=== PATIENT | male | born 1950 | race Caucasian/White ===

== ENCOUNTER 2019-05-20 09:41 | Outpatient (CLI) | payer MEDICARE ==
--- NOTE | 2019-05-20 15:18 | Ultrasound Report ---
Reason: SCREENING FOR AAA Procedure Date: 05/20/2019 Accession Number: [id number] / [id number] Procedure: US - Aorta Screening CPT Code: Final Report FULL RESULT: EXAM: AORTIC DOPPLER ULTRASOUND EXAM DATE: 05/20/2019 10:15 AM. CLINICAL HISTORY: SCREENING FOR AAA. COMPARISON: None. TECHNIQUE: Real-time sonographic imaging of retroperitoneal vascular structures, including color-flow, Doppler flow and spectral analysis was performed by the abstract manager. Multiple fulfillment representative static images were saved for review. FINDINGS: Aorta: The abdominal aorta was adequately visualized. No evidence for abdominal aortic aneurysm. Proximal: Obscured by overlying bowel gas. Mid: 2.1 x 2.2 cm. Distal: 2.0 x 2.07 m. Iliac Vessels: The visualized proximal common iliac arteries are normal in caliber. Other: None. IMPRESSION: Proximal aorta is obscured by overlying bowel gas. Otherwise, no abdominal aortic aneurysm. [facility]
== END 2019-05-20 09:42 | disposition home or self-care (01) ==
LOC: DI 09:41
PROVIDERS: ATTEND Registered Nurse
DX: Z13.6 Encounter for screening for cardiovascular disorders (principal); R07.81 Pleurodynia; Z82.49 Family history of ischemic heart disease and other diseases of the circulatory system
CPT/HCPCS: 76706

== ENCOUNTER 2019-05-20 10:00 | Outpatient (CLI) | payer MEDICARE ==
--- NOTE | 2019-05-20 16:34 | XRAY Report ---
Reason: PLEURODYNIA Procedure Date: 05/20/2019 Accession Number: [id number] / [id number] Procedure: XR - Ribs w/PA Chest RT CPT Code: Final Report FULL RESULT: EXAM: RIGHT RIB RADIOGRAPHY EXAM DATE: 05/20/2019 10:35 AM. CLINICAL HISTORY: PLEURODYNIA. COMPARISON: None. TECHNIQUE: 1 view of the chest and 2 views of the ribs. FINDINGS: Bones: Normal. No fracture or bone lesion. Lungs: No focal opacities. No pneumothorax. No pleural effusions. Mediastinum: Heart and mediastinal contours are unremarkable. Other: None. IMPRESSION: Negative rib radiography. [facility]
== END 2019-05-20 10:01 | disposition home or self-care (01) ==
LOC: DI 10:00
PROVIDERS: ATTEND Nurse Practitioner Family
DX: R07.81 Pleurodynia (principal)

== ENCOUNTER 2019-06-01 08:53 | Outpatient (CLI) | payer MEDICARE, OTHER ==
--- NOTE | 2019-06-01 12:25 | CARDIAC PROCEDURE NOTE ---
DATE OF SERVICE: 06/01/2019 Physician: Ginny Concepcion MD, [facility] INDICATION: Atherosclerotic heart disease. CARDIAC RISK FACTORS: Male gender, elevated cholesterol, hypertension, family history of heart disease. DESCRIPTION OF PROCEDURE: After signing informed consent, the patient underwent a Jamie-protocol treadmill stress test with nuclear myocardial perfusion imaging. RESTING HEART RATE: 64. PEAK HEART RATE: 140 (91% predicted maximum heart rate for age). RESTING BLOOD PRESSURE: 125/87. PEAK BLOOD PRESSURE: 209/80. The patient exercised for 9 minutes 30 seconds on a Jamie-protocol treadmill stress test with the additional 30 seconds at a continued stage III. The patient achieved a peak heart rate of 140 (91% PMHR) and 10.2 METS. The patient had no chest pain. The patient had moderate shortness of breath and oxygen saturation decreased slightly from 98% to 94% on room air. The patient rated his perceived exertion at 15/20 on a Shira scale. Blood pressure response was excessive. RESTING EKG: Normal sinus rhythm, left atrial enlargement, otherwise within normal limits. EKG AT PEAK: Even more prominent left atrial enlargement and upsloping ST segment depressions in leads II, III, aVF, and V3-V6. SUMMARY 1. Borderline abnormal resting EKG. 2. Nonspecific changes occur by EKG criteria for ischemia. 3. Good exercise tolerance. 4. Nuclear images reported separately. 5. This patient's cardiac risk based on all the above: Moderate. cc: TALIA Lacey TD: 06/01/2019 12:12 MTDD
--- NOTE | 2019-06-02 16:30 | Nuclear Medicine Report ---
Reason: CORONARY ARTERIOSCLEROSIS Procedure Date: 06/01/2019 Accession Number: [id number] / [id number] Procedure: NM - Myocardial Perfusion STR/RST CPT Code: Final Report FULL RESULT: EXAM: SINGLE-ISOTOPE PHARMACOLOGICAL STRESS TEST WITH REGADENOSON. SINGLE-ISOTOPE AND ONE-DAY REST/STRESS MYOCARDIAL PERFUSION SCANS WITH TOMOGRAPHIC IMAGING, QUANTITATIVE ANALYSIS, WALL MOTION ANALYSIS AND CALCULATION OF EJECTION FRACTION. EXAM DATE: 06/01/2019 04:13 PM. CLINICAL HISTORY: Coronary arteriosclerosis. COMPARISON: None available. TECHNIQUE: After the intravenous administration of 10.9 mCi of Tc-99m sestamibi, a rest myocardial perfusion scan was done with tomography. Motion correction was applied when appropriate. After an appropriate delay, pharmacological stress was performed with the infusion of 0.4 mg regadenoson per protocol. According to protocol, 43.5 mCi of Tc-99m sestamibi was injected for stress myocardial perfusion scan. Motion correction was applied when appropriate. Gated tomographic images were obtained for wall motion analysis and computation of left ventricular ejection fraction. FINDINGS: On visual analysis, no convincing significant fixed or reversible perfusion defects are evident. Computer analysis indicates a moderate severity reversible anterior wall defect with a summed stress score 11 and summed difference score 8. Wall motion analysis demonstrates no focal wall motion abnormality. The left ventricular end-diastolic volume is 66 cc. The left ventricular end-systolic volume is 16 cc. The left ventricular ejection fraction is calculated to be 75%. IMPRESSION: 1. The computer indicates moderate anterior wall ischemia, but this is not appreciated on visual analysis. 2. Left ventricular ejection fraction of 75%. 3. Normal segmental and global wall motion. 4. Normal left ventricular cavity size, no change with stress. Please correlate findings with stress ECG tracings and procedure notes. [facility]
== END 2019-06-01 08:54 | disposition home or self-care (01) ==
LOC: DI 08:53
PROVIDERS: ATTEND Registered Nurse
DX: I25.10 Atherosclerotic heart disease of native coronary artery without angina pectoris (principal); R94.31 Abnormal electrocardiogram [ECG] [EKG]; E78.00 Pure hypercholesterolemia, unspecified; I10 Essential (primary) hypertension; Z82.49 Family history of ischemic heart disease and other diseases of the circulatory system
CPT/HCPCS: 78452; 93017; A9500

== ENCOUNTER 2020-09-07 08:00 | Outpatient (CLI) | payer MEDICARE ==
[2020-09-07 14:54] LABS: BILIRUBIN,URINE NEGATIVE (NEGATIVE); GLUCOSE, URINE (UA) NEGATIVE (NEGATIVE); KETONES,URINE (UA) TRACE mg/dL (NEGATIVE); LEUKOCYTE ESTERASE, URINE MODERATE (NEGATIVE); NITRITE,URINE POSITIVE (NEGATIVE); OCCULT BLOOD,URINE LARGE (NEGATIVE); PH,URINE 6.5 PH (5.0-7.5); PROTEIN,URINE >=300 mg/dL (NEGATIVE); UROBILINOGEN,URINE 1 (NORMAL) E.U./dL (NORMAL)
[2020-09-07 14:58] LABS: CLARITY,URINE CLOUDY (CLEAR)
[2020-09-07 15:08] LABS: BACTERIA,URINE Moderate /HPF (None Seen); RBC,URINE TNTC /HPF (0-5); SQUAMOUS EPITHELIAL CELL,UR FEW Squamous (<= Few); WBC,URINE >25 /HPF (0-3)
== END 2020-09-07 23:59 | disposition home or self-care (01) ==
LOC: LAB.S 08:00
PROVIDERS: ATTEND Emergency Medicine
DX: R36.9 Urethral discharge, unspecified (principal); N41.0 Acute prostatitis
CPT/HCPCS: 81001; 87070; 87086; 87181; 87205

== ENCOUNTER 2020-09-10 17:30 | Emergency (ER) | payer MEDICARE ==
--- OUTSIDE RECORDS SUMMARY | 2020-09-10 17:33 | EXTERNAL MEDICAL SUMMARY RPT | Continuity of Care Document ---
:1950 Demographics Phone Unavailable Preferred Language Unknown Marital Status Unknown Yarsani Affiliation Unknown Race Unknown Ethnic Group Unknown Author Organization [facility] Address [address] [phone] Phone Care Team Providers Name Role Phone MD Unavailable Unavailable Alicja Unavailable Unavailable Allergies Encounters Medications date description facility [id number] [facility] [id number] TAMSULOSIN HCL [facility] [id number] ROSUVASTATIN CALCIUM [facility] [id number] CIPROFLOXACIN HCL [facility] [phone] ASPIRIN [facility] [id number] ROSUVASTATIN CALCIUM [facility] [id number] TAMSULOSIN HCL [facility] [id number] CIPROFLOXACIN HCL [facility] [id number] [facility] [id number] [facility] [id number] T[facility]ULOSIN [facility]CL [facility] [id number] ROSUVASTATIN CALCIUM [facility] [id number] CIPROFLOXACIN HCL [facility] [id number] ASPIRIN [facility] [id number] ROSUVASTATIN CALCIUM [facility] [id number] TAMSULOSIN HCL [facility] [id number] CIPROFLOXACIN HCL [facility] [id number] [facility] Problems date description facility [id number] Tobacco smoking status NHIS [facility] [id number] Never smoker [facility] [id number] Details of drug misuse behavior [facility] [id number] Constipation, unspecified [facility] [id number] Constipation [facility] [id number] Alcohol use [facility] [id number] Alcohol intake [facility] [id number] Tobacco smoking status NHIS [facility] [id number] Never smoker [facility] [id number] Details of drug misuse behavior [facility] [id number] Benign prostatic hyperplasia with [facility] Primary Care & outflow obstruction [facility] [id number] Urinalysis with Microscopic Exam, [facility] Primary Care & Culture in Indicated [facility] [id number] Urethral discharge, unspecified [facility] [id number] Hypertrophy (benign) of prostate with W [facility] Primary Care & urinary obstruction and other lower Anci llary Services [facility] urinary tract symptoms (LUTS) [id number] Discharge from penis [facility] [id number] CULT WOUND AEROBIC [facility] [id number] Benign prostatic hyperplasia with [facility] Primary Care & lower urinary tract symptoms Ancillary S ervices [facility] [id number] Alcohol use [facility] [id number] Alcohol intake [facility] r[facility] [id number] Acute prostatitis [facility] [place] [facility] Enoc rubio Results test status date ordered by attending specimen abisai e WBC_urine_on_microscop unknown [id number] unknown unknown unknown y Urobilinogen_Presence_ unknown 12726018 unknown unknown unknown in_Urine_by_Test_strip Specific_gravity_of_Ur unknown 99783080 unknown unknown unknown ine_by_Test_strip Nitrite_Presence_in_Ur unknown 95933632 unknown unknown unknown ine_by_Test_strip Leukocyte_esterase_Pre unknown 66313071 unknown unknown unknown sence_in_Urine_by_Test_ strip Ketones_Mass_volume_in unknown 57414626 unknown unknown unknown _Urine_by_Test_strip Color_of_Urine unknown 65611492 unknown unknown unknown Bilirubin.total_Presen unknown 49978273 unknown unknown unknown ce_in_Urine_by_Test_str ip clarity_urine_point unknown 91655219 unknown unknown unk nown pH_study_of_acidity unknown 95828873 unknown unknown unk nown glucose_urine unknown 08607800 unknown unknown unknown leukocyte_esterase_uri unknown 61599127 unknown unknown unknown ne_by_dipstick urobilinogen_urine_sem unknown 92437090 unknown unknown unknown iquantitative_dipstick_ specific_gravity_urine unknown 08425490 unknown unknown unknown nitrite_urine_semiquan unknown 04271699 unknown unknown unknown titative ketones_urine_by_test_ unknown 90461155 unknown unknown unknown strip bilirubin_urine unknown 77581417 unknown unknown unknown urine_color unknown 34670744 unknown unknown unknown Glucose_Mass_volume_in unknown 52572080 unknown unknown unknown _Urine WBC_urine_on_microscop unknown 89338739 unknown unknown unknown y WBC_URINE unknown 41093872 unknown unknown unknown UROBILINOGEN_URINE unknown 88641298 unknown unknown unkn own SPECIFIC_GRAVITY_URINE unknown 86765923 unknown unknown unknown T unknown 94454394 unknown unknown unknown T unknown 74460041 unknown unknown unknown T unknown 24668559 unknown unknown unknown T unknown 83446220 unknown unknown unknown T unknown 66156789 unknown unknown unknown T unknown 51088334 unknown unknown unknown T unknown 95607723 unknown unknown unknown T unknown 57639980 unknown unknown unknown T unknown 64132423 unknown unknown unknown T unknown 51211390 unknown unknown unknown T unknown 13244031 unknown unknown unknown PH_URINE unknown 61774770 unknown unknown unknown NITRITE_URINE unknown 02063949 unknown unknown unknown LEUKOCYTE_ESTERASE_URI unknown 76922936 unknown unknown unknown NE KETONES_URINE_UA_ unknown 66163512 unknown unknown unkno wn GLUCOSE_URINE_UA_ unknown 75289150 unknown unknown unkno wn COLOR_URINE unknown 31418743 unknown unknown unknown CLARITY_URINE unknown 58965612 unknown unknown unknown BILIRUBIN_URINE unknown 01974623 unknown unknown unknown WBC_urine_on_microscop unknown 71277929 unknown unknown unknown y Urobilinogen_Presence_ unknown 47554090 unknown unknown unknown in_Urine_by_Test_strip Specific_gravity_of_Ur unknown 07588835 unknown unknown unknown ine_by_Test_strip Nitrite_Presence_in_Ur unknown 99747715 unknown unknown unknown ine_by_Test_strip Leukocyte_esterase_Pre unknown 46276183 unknown unknown unknown sence_in_Urine_by_Test_ strip Ketones_Mass_volume_in unknown 07558907 unknown unknown unknown _Urine_by_Test_strip Color_of_Urine unknown 66991022 unknown unknown unknown Bilirubin.total_Presen unknown 12538854 unknown unknown unknown ce_in_Urine_by_Test_str ip clarity_urine_point unknown 26469711 unknown unknown unk nown pH_study_of_acidity unknown 05519629 unknown unknown unk nown glucose_urine unknown 12955891 unknown unknown unknown leukocyte_esterase_uri unknown 95385853 unknown unknown unknown ne_by_dipstick urobilinogen_urine_sem unknown 65239807 unknown unknown unknown iquantitative_dipstick_ specific_gravity_urine unknown 76974540 unknown unknown unknown nitrite_urine_semiquan unknown 74999827 unknown unknown unknown titative ketones_urine_by_test_ unknown 38556817 unknown unknown unknown strip bilirubin_urine unknown 44688029 unknown unknown unknown urine_color unknown 35702064 unknown unknown unknown Glucose_Mass_volume_in unknown 67522552 unknown unknown unknown _Urine WBC_urine_on_microscop unknown 43290120 unknown unknown unknown y WBC_URINE unknown 89251721 unknown unknown unknown UROBILINOGEN_URINE unknown 02403286 unknown unknown unkn own SPECIFIC_GRAVITY_URINE unknown 15587270 unknown unknown unknown T unknown 33435041 unknown unknown unknown T unknown 65787410 unknown unknown unknown T unknown 33895555 unknown unknown unknown T unknown 61877676 unknown unknown unknown T unknown 63251728 unknown unknown unknown T unknown 34198100 unknown unknown unknown T unknown 45423949 unknown unknown unknown T unknown 63979388 unknown unknown unknown T unknown 66294354 unknown unknown unknown T unknown 37046037 unknown unknown unknown T unknown 92130036 unknown unknown unknown PH_URINE unknown 75882217 unknown unknown unknown NITRITE_URINE unknown 12422813 unknown unknown unknown LEUKOCYTE_ESTERASE_URI unknown 92201062 unknown unknown unknown NE KETONES_URINE_UA_ unknown 89593523 unknown unknown unkno wn GLUCOSE_URINE_UA_ unknown 30555254 unknown unknown unkno wn COLOR_URINE unknown 29718150 unknown unknown unknown CLARITY_URINE unknown 28687981 unknown unknown unknown BILIRUBIN_URINE unknown 96967014 unknown unknown unknown facility observation status value reference units lab code abn ormal line range notes [facility] WBC_urine_on unknown >25 /HPF unknown _5821-4 unk nown unknown Clinic _microscopy [facility] Urobilinogen unknown 1 unknown _5818-0 unkno wn unknown Clinic _Presence_in_ (NORMAL) Primary Urine_by_Test Care & _strip [facility] Specific_gra unknown >=1.030 unknown _5811-5 unkn own unknown Clinic vity_of_Urine Primary _by_Test_stri Care & p [facility] Nitrite_Pres unknown POSITIVE unknown _5802-4 unk nown unknown Clinic ence_in_Urine Primary _by_Test_stri Care & p [facility] Leukocyte_es unknown MODERATE unknown _5799-2 unk nown unknown Clinic terase_Presen Primary ce_in_Urine_b Care & y_Test_strip [facility] Ketones_Mass unknown TRACE unknown _5797-6 unkno wn unknown Clinic _volume_in_Ur Primary ine_by_Test_s Care & trip [facility] Color_of_Uri unknown BROWN unknown _5778-6 unkno wn unknown Clinic ne [facility] Bilirubin.to unknown NEGATIVE unknown _5770-3 unk nown unknown Clinic tal_Presence_ Primary in_Urine_by_T Care & est_strip [facility] clarity_urin unknown CLOUDY unknown _5589 unknow n unknown Clinic e_point [facility] pH_study_of_ unknown 6.5 unknown _51641 unknow n unknown Clinic acidity [facility] glucose_urin unknown NEGATIVE unknown _3369 unkn own unknown Clinic e mg/dL [facility] leukocyte_es unknown MODERATE unknown _327 unkn own unknown Clinic terase_urine_ Primary by_dipstick Care & [facility] urobilinogen unknown 1 unknown _326 unknow n unknown Clinic _urine_semiqu (NORMAL) Primary antitative_di Care & pstick_ [facility] specific_gra unknown >=1.030 unknown _325 unkno wn unknown Clinic vity_urine [facility] nitrite_urin unknown POSITIVE unknown _323 unkn own unknown Clinic e_semiquantit Primary ative [facility] ketones_urin unknown TRACE unknown _322 unknow n unknown Clinic e_by_test_str Primary ip [facility] bilirubin_ur unknown NEGATIVE unknown _319 unkn own unknown Clinic ine [facility] urine_color unknown BROWN unknown _2751 unknown unknown Clinic [facility] Glucose_Mass unknown NEGATIVE unknown _2350-7 unk nown unknown Clinic _volume_in_Ur mg/dL Primary ine [facility] WBC_urine_on unknown >25 /HPF unknown _1016 unkn own unknown Clinic _microscopy [facility] WBC_URINE unknown >25 /HPF unknown UWBC unknown unknown Clinic [facility] UROBILINOGEN unknown 1 unknown UUROBIL unkno wn unknown Clinic _URINE (NORMAL) [facility] SPECIFIC_GRA unknown >=1.030 unknown USG unkno wn unknown Clinic VITY_URINE [facility] T unknown >25 /HPF unknown UR_WBC unknown u [facility] T unknown 1 unknown UR_URO unknown [facility] (NORMAL) [facility] T unknown >=1.030 unknown UR_SG unknown un known Clinic [facility] T unknown 6.5 unknown UR_PH unknown [facility] T unknown POSITIVE unknown [facility] T unknown MODERATE unknown UR_LEU_E unknown unknown Clinic STERASE [facility] T unknown TRACE unknown UR_KETO_ unknown u [facility] UA_ [facility] T unknown NEGATIVE unknown UR_GLU unknown u [facility] mg/dL Primary [facility] T unknown BROWN unknown UR_COLOR unknown u [facility] T unknown CLOUDY unknown UR_CLARI unknown u [facility] TY [facility] T unknown NEGATIVE unknown UR_BILI unknown unknown Clinic [facility] PH_URINE unknown 6.5 unknown UPH unknown u [facility] NITRITE_URIN unknown POSITIVE unknown UNITRITE un known unknown Clinic E [facility] LEUKOCYTE_ES unknown MODERATE unknown ULEUK unkn own unknown Clinic TERASE_URINE [facility] KETONES_URIN unknown TRACE unknown UKET unknow n unknown Clinic E_UA_ [facility] GLUCOSE_URIN unknown NEGATIVE unknown UGLUC unkn own unknown Clinic E_UA_ mg/dL [facility] COLOR_URINE unknown BROWN unknown UCOL unknown unknown Clinic [facility] CLARITY_URIN unknown CLOUDY unknown UCLAR unknow n unknown Clinic E [facility] BILIRUBIN_UR unknown NEGATIVE unknown UBIL unkn own unknown Clinic INE [facility] WBC_urine_on unknown >25 /HPF unknown _5821-4 unk nown unknown Clinic _microscopy [facility] Urobilinogen unknown 1 unknown _5818-0 unkno wn unknown Clinic _Presence_in_ (NORMAL) Primary Urine_by_Test Care & _strip [facility] Specific_gra unknown >=1.030 unknown _5811-5 unkn own unknown Clinic vity_of_Urine Primary _by_Test_stri Care & p [facility] Nitrite_Pres unknown POSITIVE unknown _5802-4 unk nown unknown Clinic ence_in_Urine Primary _by_Test_stri Care & p [facility] Leukocyte_es unknown MODERATE unknown _5799-2 unk nown unknown Clinic terase_Presen Primary ce_in_Urine_b Care & y_Test_strip [facility] Ketones_Mass unknown TRACE unknown _5797-6 unkno wn unknown Clinic _volume_in_Ur Primary ine_by_Test_s Care & trip [facility] Color_of_Uri unknown BROWN unknown _5778-6 unkno wn unknown Clinic ne [facility] Bilirubin.to unknown NEGATIVE unknown _5770-3 unk nown unknown Clinic tal_Presence_ Primary in_Urine_by_T Care & est_strip [facility] clarity_urin unknown CLOUDY unknown _5589 unknow n unknown Clinic e_point [facility] pH_study_of_ unknown 6.5 unknown _51641 unknow n unknown Clinic acidity [facility] glucose_urin unknown NEGATIVE unknown _3369 unkn own unknown Clinic e mg/dL [facility] leukocyte_es unknown MODERATE unknown _327 unkn own unknown Clinic terase_urine_ Primary by_dipstick Care & [facility] urobilinogen unknown 1 unknown _326 unknow n unknown Clinic _urine_semiqu (NORMAL) Primary antitative_di Care & pstick_ [facility] specific_gra unknown >=1.030 unknown _325 unkno wn unknown Clinic vity_urine [facility] nitrite_urin unknown POSITIVE unknown _323 unkn own unknown Clinic e_semiquantit Primary ative [facility] & [facility] ketones_urin unknown TRACE unknown _322 unknow n unknown Clinic e_by_test_str Primary ip [facility] & [facility] bilirubin_ur unknown NEGATIVE unknown _319 unkn own unknown Clinic ine [facility] urine_color unknown BROWN unknown _2751 unknown unknown Clinic [facility] Glucose_Mass unknown NEGATIVE unknown _2350-7 unk nown unknown Clinic _volume_in_Ur mg/dL Primary ine Care & [facility] WBC_urine_on unknown >25 /HPF unknown _1016 unkn own unknown Clinic _microscopy [facility] WBC_URINE unknown >25 /HPF unknown UWBC unknown unknown Clinic [facility] UROBILINOGEN unknown 1 unknown UUROBIL unkno wn unknown Clinic _URINE (NORMAL) [facility] SPECIFIC_GRA unknown >=1.030 unknown USG unkno wn unknown Clinic VITY_URINE [facility] T unknown >25 /HPF unknown UR_WBC unknown u [facility] T unknown 1 unknown UR_URO unknown [facility] (NORMAL) [facility] T unknown >=1.030 unknown UR_SG unknown un known Clinic [facility] T unknown 6.5 unknown UR_PH unknown [facility] T unknown POSITIVE unknown UR_NIT unknown u [facility] T unknown MODERATE unknown UR_LEU_E unknown unknown Clinic STERASE [facility] T unknown TRACE unknown UR_KETO_ unknown u [facility] UA_ [facility] T unknown NEGATIVE unknown UR_GLU unknown u [facility] mg/dL Primary Care & [facility] Services [facility] T unknown BROWN unknown UR_COLOR unknown u [facility] T unknown CLOUDY unknown UR_CLARI unknown u [facility] TY Primary Care [facility] T unknown NEGATIVE unknown UR_BILI unknown unknown Clinic [facility] PH_URINE unknown 6.5 unknown UPH unknown u [facility] NITRITE_URIN unknown POSITIVE unknown UNITRITE un known unknown Clinic E [facility] LEUKOCYTE_ES unknown MODERATE unknown ULEUK unkn own unknown Clinic TERASE_URINE [facility] KETONES_URIN unknown TRACE unknown UKET unknow n unknown Clinic E_UA_ [facility] GLUCOSE_URIN unknown NEGATIVE unknown UGLUC unkn own unknown Clinic E_UA_ mg/dL [facility] COLOR_URINE unknown BROWN unknown UCOL unknown unknown Clinic [facility] CLARITY_URIN unknown CLOUDY unknown UCLAR unknow n unknown Clinic E [facility] BILIRUBIN_UR unknown NEGATIVE unknown UBIL unkn own unknown Clinic INE [facility] Vital Signs date measurement value source 20200907 weight_standard 210 lb 20200907 weight_metric 95.25 kg 20200907 temperature_standard 99.9 F 20200907 temperature_metric 37.72 C 20200907 respiration_rate 15 /min 20200907 height_standard 73 in 20200907 height_metric 185.42 cm 20200907 heart_rate 95 /min 20200907 BP_systolic 131 mm[Hg] 20200907 BP_diastolic 77 mm[Hg] 20200907 BMI 27.81 kg/m2 20200907 weight_standard 210 lb 20200907 weight_metric 95.25 kg 20200907 temperature_standard 99.9 F 20200907 temperature_metric 37.72 C 20200907 respiration_rate 15 /min 20200907 height_standard 73 in 20200907 height_metric 185.42 cm 20200907 heart_rate 95 /min 20200907 BP_systolic 131 mm[Hg] 20200907 BP_diastolic 77 mm[Hg] 20200907 BMI 27.81 kg/m2 20200909 weight_standard 210 lb 20200909 weight_metric 95.25 kg 20200909 temperature_standard 97.9 F 20200909 temperature_metric 36.61 C 20200909 respiration_rate 16 /min 20200909 height_standard 73 in 20200909 height_metric 185.42 cm 20200909 heart_rate 88 /min 20200909 BP_systolic 121 mm[Hg] 20200909 BP_diastolic 69 mm[Hg] 20200909 BMI 27.81 kg/m2
--- OUTSIDE RECORDS SUMMARY | 2020-09-10 17:39 | EXTERNAL MEDICAL SUMMARY RPT | Continuity of Care Document ---
:1950 Demographics Phone Unavailable Preferred Language Unknown Marital Status Unknown Congregation Affiliation Unknown Race Unknown Ethnic Group Unknown Author Organization [facility] Address [address] [id number] Phone Care Team Providers Name Role Phone MD Unavailable Unavailable Alicja Unavailable Unavailable Allergies Encounters Medications date description facility [id number] [facility] [id number] [facility]UL[facility] [id number] ROSUVASTATIN CALCIUM [facility] [id number] CIPROFLOXACIN HCL [facility] [id number] ASPIRIN [facility] [id number] ROSUVASTATIN CALCIUM [facility] [id number] T[facility]ULOS[facility] [id number] CIPROFLOXACIN HCL [facility] [id number] [facility] [id number] [facility] [id number] TAMSULOSIN [facility]CL [facility] [id number] ROSUVASTATIN CALCIUM [facility] [id number] CIPROFLOXACIN HCL [facility] [id number] ASPIRIN [facility] [id number] ROSUVASTATIN CALCIUM [facility] [id number] TAMSULOSIN HCL [facility] [id number] CIPROFLOXACIN HCL [facility] [phone] [facility] Problems date description facility [id number] Tobacco smoking status [facility] [id number] Never smoker [facility] [id number] Details of drug misuse behavior [facility] [id number] Constipation, unspecified [facility] [id number] Constipation [facility] [id number] Alcohol use [facility] [id number] Alcohol intake [facility] [id number] Tobacco smoking status NHIS [facility] [id number] Never smoker [facility] [id number] Details of drug misuse behavior [facility] [id number] Benign prostatic hyperplasia with [facility] & outflow obstruction Anc[facility] [id number] Urinalysis with Microscopic Exam, [facility] Primary [facility] & Culture in Indicated [facility] [id number] Urethral discharge, unspecified [facility] [id number] Hypertrophy (benign) of prostate with W [facility] Care & urinary obstruction and other lower Anci llary Services [facility] urinary tract symptoms (LUTS) [id number] Discharge from penis [facility] [id number] CULT WOUND AEROBIC [facility] [id number] Benign prostatic hyperplasia with [facility] Care & lower urinary tract symptoms Ancillary S ervices [facility] [id number] Alcohol use [facility] [id number] Alcohol intake [facility] r[facility] [id number] Acute prostatitis [facility] Enoc rubio Results test status date ordered by attending specimen abisai e WBC_urine_on_microscop unknown [id number] unknown unknown unknown y Urobilinogen_Presence_ unknown [id number] unknown unknown unknown in_Urine_by_Test_strip Specific_gravity_of_Ur unknown 21072751 unknown unknown unknown ine_by_Test_strip Nitrite_Presence_in_Ur unknown [id number] unknown unknown unknown ine_by_Test_strip Leukocyte_esterase_Pre unknown [id number] unknown unknown unknown sence_in_Urine_by_Test_ strip Ketones_Mass_volume_in unknown 47193515 unknown unknown unknown _Urine_by_Test_strip Color_of_Urine unknown 18259626 unknown unknown unknown Bilirubin.total_Presen unknown 62865619 unknown unknown unknown ce_in_Urine_by_Test_str ip clarity_urine_point unknown 83661331 unknown unknown unk nown pH_study_of_acidity unknown 93943370 unknown unknown unk nown glucose_urine unknown 00062952 unknown unknown unknown leukocyte_esterase_uri unknown 28180225 unknown unknown unknown ne_by_dipstick urobilinogen_urine_sem unknown 26514611 unknown unknown unknown iquantitative_dipstick_ specific_gravity_urine unknown 57633553 unknown unknown unknown nitrite_urine_semiquan unknown 99665217 unknown unknown unknown titative ketones_urine_by_test_ unknown 03477303 unknown unknown unknown strip bilirubin_urine unknown 80592647 unknown unknown unknown urine_color unknown 91609759 unknown unknown unknown Glucose_Mass_volume_in unknown 90805848 unknown unknown unknown _Urine WBC_urine_on_microscop unknown 84407351 unknown unknown unknown y WBC_URINE unknown 42601247 unknown unknown unknown UROBILINOGEN_URINE unknown 07684146 unknown unknown unkn own SPECIFIC_GRAVITY_URINE unknown 37746106 unknown unknown unknown T unknown 88999588 unknown unknown unknown T unknown 06621941 unknown unknown unknown T unknown 43310949 unknown unknown unknown T unknown 54661756 unknown unknown unknown T unknown 94427403 unknown unknown unknown T unknown 41322660 unknown unknown unknown T unknown 97822867 unknown unknown unknown T unknown 91099541 unknown unknown unknown T unknown 59133481 unknown unknown unknown T unknown 58820796 unknown unknown unknown T unknown [id number] unknown unknown unknown PH_URINE unknown 06621160 unknown unknown unknown NITRITE_URINE unknown 28181759 unknown unknown unknown LEUKOCYTE_ESTERASE_URI unknown [id number] unknown unknown unknown NE KETONES_URINE_UA_ unknown 84049244 unknown unknown unkno wn GLUCOSE_URINE_UA_ unknown [id number] unknown unknown unkno wn COLOR_URINE unknown 63990169 unknown unknown unknown CLARITY_URINE unknown 45898219 unknown unknown unknown BILIRUBIN_URINE unknown 02153636 unknown unknown unknown WBC_urine_on_microscop unknown 46633416 unknown unknown unknown y Urobilinogen_Presence_ unknown 01170431 unknown unknown unknown in_Urine_by_Test_strip Specific_gravity_of_Ur unknown 72498895 unknown unknown unknown ine_by_Test_strip Nitrite_Presence_in_Ur unknown 54537180 unknown unknown unknown ine_by_Test_strip Leukocyte_esterase_Pre unknown 19688006 unknown unknown unknown sence_in_Urine_by_Test_ strip Ketones_Mass_volume_in unknown 93589419 unknown unknown unknown _Urine_by_Test_strip Color_of_Urine unknown 06524691 unknown unknown unknown Bilirubin.total_Presen unknown 83001160 unknown unknown unknown ce_in_Urine_by_Test_str ip clarity_urine_point unknown 55806946 unknown unknown unk nown pH_study_of_acidity unknown 57952074 unknown unknown unk nown glucose_urine unknown 83632797 unknown unknown unknown leukocyte_esterase_uri unknown 89163160 unknown unknown unknown ne_by_dipstick urobilinogen_urine_sem unknown 68748197 unknown unknown unknown iquantitative_dipstick_ specific_gravity_urine unknown 06198628 unknown unknown unknown nitrite_urine_semiquan unknown 15759675 unknown unknown unknown titative ketones_urine_by_test_ unknown 60969632 unknown unknown unknown strip bilirubin_urine unknown 05806926 unknown unknown unknown urine_color unknown 92744987 unknown unknown unknown Glucose_Mass_volume_in unknown 44317434 unknown unknown unknown _Urine WBC_urine_on_microscop unknown 78928086 unknown unknown unknown y WBC_URINE unknown 41832723 unknown unknown unknown UROBILINOGEN_URINE unknown 78564235 unknown unknown unkn own SPECIFIC_GRAVITY_URINE unknown 86291467 unknown unknown unknown T unknown 37682567 unknown unknown unknown T unknown 96929202 unknown unknown unknown T unknown 17468272 unknown unknown unknown T unknown 57811247 unknown unknown unknown T unknown 94626674 unknown unknown unknown T unknown 30453767 unknown unknown unknown T unknown 33921775 unknown unknown unknown T unknown 57601580 unknown unknown unknown T unknown 06978094 unknown unknown unknown T unknown 03356460 unknown unknown unknown T unknown 60878459 unknown unknown unknown PH_URINE unknown 39599070 unknown unknown unknown NITRITE_URINE unknown [id number] unknown unknown unknown LEUKOCYTE_ESTERASE_URI unknown 42130109 unknown unknown unknown NE KETONES_URINE_UA_ unknown 64480772 unknown unknown unkno wn GLUCOSE_URINE_UA_ unknown [id number] unknown unknown unkno wn COLOR_URINE unknown [id number] unknown unknown unknown CLARITY_URINE unknown 29142484 unknown unknown unknown BILIRUBIN_URINE unknown 08501531 unknown unknown unknown facility observation status value [...] unknown >25 /HPF unknown UR_WBC unknown u [facility] unknown 1 unknown UR_URO unknown [facility] (NORMAL) [facility] unknown >=1.030 unknown UR_SG unknown un known [facility] unknown 6.5 unknown UR_PH unknown [facility] unknown POSITIVE unknown [facility]NIT [facility] unknown MODERATE unknown UR_LEU_E unknown unknown Clinic STERASE [facility] unknown TRACE unknown UR_KETO_ unknown u [facility] UA_ [facility] [place] unknown NEGATIVE unknown UR_GLU unknown u [facility] mg/dL [facility] unknown BROWN unknown UR_COLOR unknown u [facility] unknown CLOUDY unknown UR_CLARI unknown u [facility] TY [facility] unknown NEGATIVE unknown UR_BILI unknown unknown Clinic [facility] PH_URINE unknown 6.5 unknown UPH unknown u [facility] Primary Care & [...] unknown >25 /HPF unknown UR_WBC unknown u [facility] unknown 1 unknown UR_URO unknown [facility] (NORMAL) [facility] unknown >=1.030 unknown UR_SG unknown un known [facility] unknown 6.5 unknown UR_PH unknown [facility] unknown POSITIVE unknown UR_NIT unknown u [facility] unknown MODERATE unknown UR_LEU_E unknown unknown Clinic STERASE [facility] unknown TRACE unknown UR_KETO_ unknown u [facility] UA_ [facility] T unknown NEGATIVE unknown UR_GLU unknown u [facility] mg/dL [facility] T unknown BROWN unknown UR_COLOR unknown u [facility] unknown CLOUDY unknown UR_CLARI unknown u [facility] TY [facility] T unknown NEGATIVE unknown UR_BILI unknown unknown Clinic [facility] PH_URINE unknown 6.[address] unknown u [facility] Primary Care & [...] Clinic INE [facility] Anc[facility] Services [place] Vital Signs date measurement value source [id number] [...]
[2020-09-10 17:43] VITALS: BP 165/85
--- NOTE | 2020-09-10 18:04 | ED Physician Documentation ---
History of Present Illness - Stated complaint Stated Complaint: CATH ISSUE - Chief complaint Chief Complaint: General - History obtained from History obtained from: Patient - Additonal information Additional information: Seen at [place] for first episode of urinary retention 2 weeks ago and has had a catheter in since. Few days ago was diagnosed with staph UTI and started on Cipro. Yesterday had obstruction of the catheter and it was flushed at urgent care. Tonight it is obstructed again and he is leaking around the tip of the catheter. Review of Systems Constitutional: denies: Fever, Chills Nose: reports: Reviewed and negative Throat: reports: Reviewed and negative Cardiac: reports: Reviewed and negative PD PAST MEDICAL HISTORY - Past Medical History Past Medical History: Yes - Past Surgical History Past Surgical History: Yes - Allergies Allergies/Adverse Reactions: Allergies Allergy/AdvReac Type Severity Reaction Status Date / Time No Known Drug Allergies Allergy Verified 09/10/20 17:43 - Social History Does the pt smoke?: No Smoking Status: Never smoker Does the pt drink ETOH?: No Does the pt have substance abuse?: No - Immunizations Immunizations are current?: Yes PD ED PE NORMAL - Vitals Vital signs reviewed: Yes - General General: Alert and oriented X 3, No acute distress - Male Male : Other (Stinson catheter in place with light shakira urine in the bag but no clots.) - Neuro Neuro: Alert and oriented X 3, Normal speech Results - Vitals Vitals: Vital Signs - 24 hr 09/10/20 09/10/20 17:40 17:51 Temperature 36.7 C 36.7 C Heart Rate 85 85 Respiratory 16 16 Rate Blood Pressure 165/85 H 165/85 H O2 Saturation 95 95 Oxygen O2 Source Room air PD MEDICAL DECISION MAKING - ED course ED course: 69-year-old gentleman presents with obstructed Stinson catheter associated with staph UTI. The catheter is been in for 2 weeks. We discussed options including irrigating the catheter, replacing catheter or a voiding trial and he opted for #3. Catheter was removed. Subsequently passed a voiding trial. After the first void his postvoid residual via bladder scan was 193 but then he went back in urinated well again he states that it was clear and he has no residual urge to urinate. Departure - Departure Disposition: 01 Home, Self Care Clinical Impression: Urinary retention Stinson catheter problem Qualifiers: Encounter type: initial encounter Qualified Code(s): T83.9XXA - Unspecified complication of genitourinary prosthetic device, implant and graft, initial encounter Condition: Good Record reviewed to determine appropriate education?: Yes Comments: Continue antibiotics and Flomax. Return as needed for new or worsening symptoms. Follow-up with the urologist on Saturday as scheduled.
== END 2020-09-10 18:50 | disposition home or self-care (01) ==
LOC: ED 17:30
DX: T83.091A Other mechanical complication of indwelling urethral catheter, initial encounter (principal); Y84.6 Urinary catheterization as the cause of abnormal reaction of the patient, or of later complication, without mention of misadventure at the time of the procedure; R33.9 Retention of urine, unspecified
CPT/HCPCS: 99281; 99282

== ENCOUNTER 2020-09-11 02:55 | Emergency (ER) | payer MEDICARE ==
--- OUTSIDE RECORDS SUMMARY | 2020-09-11 03:04 | EXTERNAL MEDICAL SUMMARY RPT | Continuity of Care Document ---
:1950 Demographics Phone Unavailable Preferred Language Unknown Marital Status Unknown Gnosticist Affiliation Unknown Race Unknown Ethnic Group Unknown Author Organization [place] Address [address] [phone] Phone Care Team Providers Name Role Phone Alicja Unavailable Unavailable MD Unavailable Unavailable Allergies Encounters Medications date description facility [id number] [facility] [id number] [facility]UL[facility] [id number] ROSUVASTATIN CALCIUM [facility] [id number] CIPROFLOXACIN HCL [facility] [id number] ASPIRIN [facility] [id number] ROSUVASTATIN CALCIUM [facility] [id number] T[facility]ULOSIN [facility]CL [facility] [id number] CIPROFLOXACIN HCL [facility] [id number] [facility] [id number] [facility] [id number] T[facility]ULOSIN [facility]CL [facility] [id number] ROSUVASTATIN CALCIUM [facility] [id number] CIPROFLOXACIN HCL [facility] [id number] ASPIRIN [facility] [id number] ROSUVASTATIN CALCIUM [facility] [id number] TAMSULOSIN [facility]CL [facility] [id number] CIPROFLOXACIN HCL [facility] [id number] [facility] Problems date description facility [id number] Tobacco smoking status NHIS [facility] [id number] Never smoker [facility] [id number] Details of drug misuse behavior [facility] [id number] Constipation, unspecified [facility] [id number] Constipation [facility] [id number] Alcohol use [facility] [id number] Alcohol intake [facility] [id number] Tobacco smoking status NHIS [facility] [id number] Never smoker [facility] [id number] Details of drug misuse behavior [facility] [id number] Benign prostatic hyperplasia with [facility] & outflow obstruction [facility] [id number] Urinalysis with Microscopic Exam, [facility] & Culture in Indicated [facility] [id number] Urethral discharge, unspecified [facility] [id number] Hypertrophy (benign) of prostate with W [facility] & urinary obstruction and other lower Anci llary Services [facility] urinary tract symptoms (LUTS) [id number] Discharge from penis [facility] [id number] CULT WOUND AEROBIC [facility] [id number] Benign prostatic hyperplasia with [facility] & lower urinary tract symptoms Ancillary S ervices [place] [id number] Alcohol use [facility] [id number] Alcohol intake [facility] [id number] Acute prostatitis [facility] [place] [facility] Enoc rubio Results test status date ordered by attending specimen abisai e WBC_urine_on_microscop unknown [id number] unknown unknown unknown y Urobilinogen_Presence_ unknown [id number] unknown unknown unknown in_Urine_by_Test_strip Specific_gravity_of_Ur unknown [id number] unknown unknown unknown ine_by_Test_strip Nitrite_Presence_in_Ur unknown 94224279 unknown unknown unknown ine_by_Test_strip Leukocyte_esterase_Pre unknown [id number] unknown unknown unknown sence_in_Urine_by_Test_ strip Ketones_Mass_volume_in unknown [id number] unknown unknown unknown _Urine_by_Test_strip Color_of_Urine unknown 53426781 unknown unknown unknown Bilirubin.total_Presen unknown [id number] unknown unknown unknown ce_in_Urine_by_Test_str ip clarity_urine_point unknown 22124834 unknown unknown unk nown pH_study_of_acidity unknown [id number] unknown unknown unk nown glucose_urine unknown 12313614 unknown unknown unknown leukocyte_esterase_uri unknown 96603752 unknown unknown unknown ne_by_dipstick urobilinogen_urine_sem unknown 32113334 unknown unknown unknown iquantitative_dipstick_ specific_gravity_urine unknown 62211370 unknown unknown unknown nitrite_urine_semiquan unknown 67110243 unknown unknown unknown titative ketones_urine_by_test_ unknown 28425337 unknown unknown unknown strip bilirubin_urine unknown 67288231 unknown unknown unknown urine_color unknown 91996118 unknown unknown unknown Glucose_Mass_volume_in unknown 44140081 unknown unknown unknown _Urine WBC_urine_on_microscop unknown 65539257 unknown unknown unknown y WBC_URINE unknown 17391852 unknown unknown unknown UROBILINOGEN_URINE unknown 04628222 unknown unknown unkn own SPECIFIC_GRAVITY_URINE unknown 98237839 unknown unknown unknown T unknown 19137366 unknown unknown unknown T unknown 92602737 unknown unknown unknown T unknown 30808835 unknown unknown unknown T unknown 04335936 unknown unknown unknown T unknown 17694713 unknown unknown unknown T unknown 88735830 unknown unknown unknown T unknown [id number] unknown unknown unknown T unknown [id number] unknown unknown unknown T unknown 58134477 unknown unknown unknown T unknown [id number] unknown unknown unknown T unknown [id number] unknown unknown unknown PH_URINE unknown 91319987 unknown unknown unknown NITRITE_URINE unknown 83524386 unknown unknown unknown LEUKOCYTE_ESTERASE_URI unknown 79800811 unknown unknown unknown NE KETONES_URINE_UA_ unknown 80148023 unknown unknown unkno wn GLUCOSE_URINE_UA_ unknown 14556471 unknown unknown unkno wn COLOR_URINE unknown 44297775 unknown unknown unknown CLARITY_URINE unknown [id number] unknown unknown unknown BILIRUBIN_URINE unknown 24201934 unknown unknown unknown WBC_urine_on_microscop unknown 96910760 unknown unknown unknown y Urobilinogen_Presence_ unknown 45372773 unknown unknown unknown in_Urine_by_Test_strip Specific_gravity_of_Ur unknown 74272816 unknown unknown unknown ine_by_Test_strip Nitrite_Presence_in_Ur unknown 95427311 unknown unknown unknown ine_by_Test_strip Leukocyte_esterase_Pre unknown 09415287 unknown unknown unknown sence_in_Urine_by_Test_ strip Ketones_Mass_volume_in unknown 01702186 unknown unknown unknown _Urine_by_Test_strip Color_of_Urine unknown 42575846 unknown unknown unknown Bilirubin.total_Presen unknown 71002592 unknown unknown unknown ce_in_Urine_by_Test_str ip clarity_urine_point unknown 69134610 unknown unknown unk nown pH_study_of_acidity unknown 66647704 unknown unknown unk nown glucose_urine unknown 75934630 unknown unknown unknown leukocyte_esterase_uri unknown 15049987 unknown unknown unknown ne_by_dipstick urobilinogen_urine_sem unknown 18326371 unknown unknown unknown iquantitative_dipstick_ specific_gravity_urine unknown 11993961 unknown unknown unknown nitrite_urine_semiquan unknown 04662237 unknown unknown unknown titative ketones_urine_by_test_ unknown [id number] unknown unknown unknown strip bilirubin_urine unknown 01961929 unknown unknown unknown urine_color unknown 95357373 unknown unknown unknown Glucose_Mass_volume_in unknown 29790849 unknown unknown unknown _Urine WBC_urine_on_microscop unknown 04109846 unknown unknown unknown y WBC_URINE unknown 24314491 unknown unknown unknown UROBILINOGEN_URINE unknown 02322237 unknown unknown unkn own SPECIFIC_GRAVITY_URINE unknown 84512530 unknown unknown unknown T unknown 96286683 unknown unknown unknown T unknown 57858532 unknown unknown unknown T unknown 64646002 unknown unknown unknown T unknown 02426199 unknown unknown unknown T unknown 49203282 unknown unknown unknown T unknown 27755536 unknown unknown unknown T unknown 99003902 unknown unknown unknown T unknown [id number] unknown unknown unknown T unknown 25435295 unknown unknown unknown T unknown 01489194 unknown unknown unknown T unknown 03108724 unknown unknown unknown PH_URINE unknown 52628023 unknown unknown unknown NITRITE_URINE unknown 09156649 unknown unknown unknown LEUKOCYTE_ESTERASE_URI unknown [id number] unknown unknown unknown NE KETONES_URINE_UA_ unknown 35306418 unknown unknown unkno wn GLUCOSE_URINE_UA_ unknown [id number] unknown unknown unkno wn COLOR_URINE unknown 11514020 unknown unknown unknown CLARITY_URINE unknown 73642119 unknown unknown unknown BILIRUBIN_URINE unknown 17633401 unknown unknown unknown facility observation status value [...] unknown >25 /HPF unknown UR_WBC unknown u [facility] [place] [facility] unknown 1 unknown UR_URO unknown [facility] (NORMAL) [facility] [place] [facility] unknown >=1.030 unknown UR_SG unknown un known [facility] [place] [facility] unknown 6.5 unknown UR_PH unknown [facility] [place] [facility] unknown POSITIVE [facility] [place] [facility] unknown MODERATE unknown UR_LEU_E unknown unknown Clinic STERASE [facility] [place] [facility] unknown TRACE unknown UR_KETO_ unknown u [facility] UA_ [facility] [place] [facility] unknown NEGATIVE unknown UR_GLU unknown u [facility] mg/dL [facility] [place] [facility] unknown BROWN unknown UR_COLOR unknown u [facility] [place] [facility] unknown CLOUDY unknown UR_CLARI unknown u [facility] TY [facility] [place] [facility] unknown NEGATIVE unknown UR_BILI unknown unknown Clinic [facility] [place] [facility] PH_URINE unknown 6.5 unknown UPH unknown u [facility] [place] [...] unknown >25 /HPF unknown UR_WBC unknown u [facility] [place] [facility] unknown 1 unknown UR_URO unknown [facility] (NORMAL) [facility] [place] [facility] unknown >=1.030 unknown UR_SG unknown un known [facility] [place] [facility] unknown 6.5 unknown UR_PH unknown [facility] [place] [facility] unknown POSITIVE unknown UR_NIT unknown u [facility] [place] [facility] unknown MODERATE unknown UR_LEU_E unknown unknown Clinic STERASE [facility] [place] [facility] unknown TRACE unknown UR_KETO_ unknown u [facility] UA_ [facility] [place] [facility] unknown NEGATIVE unknown UR_GLU unknown u [facility] mg/dL [facility] [place] [facility] unknown BROWN unknown UR_COLOR unknown u [facility] [place] [facility] unknown CLOUDY unknown UR_CLARI unknown u [facility] TY [facility] [place] [facility] unknown NEGATIVE unknown UR_BILI unknown unknown [facility] [place] [facility] PH_URINE unknown 6.5 unknown UPH unknown u [facility] [place] [...] [facility] Vital Signs date measurement value source [id number] [...]
--- OUTSIDE RECORDS SUMMARY | 2020-09-11 03:09 | EXTERNAL MEDICAL SUMMARY RPT | Continuity of Care Document ---
:1950 Demographics Phone Unavailable Preferred Language Unknown Marital Status Unknown Zoroastrianism Affiliation Unknown Race Unknown Ethnic Group Unknown Author Organization [facility] Address [address] [phone] Phone Care Team Providers Name Role Phone Alicja Unavailable Unavailable MD Unavailable Unavailable Allergies Encounters Medications date description facility [id number] [facility] [id number] T[facility]ULOSIN [facility] [id number] ROSUVASTATIN CALCIUM [facility] [id number] CIPROFLOXACIN HCL [facility] [id number] ASPIRIN [facility] [id number] ROSUVASTATIN CALCIUM [facility] [id number] T[facility]ULOS[facility] [id number] CIPROFLOXACIN HCL [facility] [id number] [facility] [id number] [facility]OT[facility] [id number] TAMSULOSIN [facility]CL [facility] [id number] ROSUVASTATIN CALCIUM [facility] [id number] CIPROFLOXACIN HCL [facility] [id number] ASPIRIN [facility] [id number] ROSUVASTATIN CALCIUM [facility] [id number] TAMSULOSIN HCL [facility] [id number] CIPROFLOXACIN HCL [facility] [id number] [facility] Problems date description facility [id number] Tobacco smoking status [facility] [id number] Never smoker [facility] [id number] Details of drug misuse behavior [facility] [id number] Constipation, unspecified [facility] [id number] Constipation [facility] [id number] Alcohol use [facility] [id number] Alcohol intake [facility] [id number] Tobacco smoking status NHIS [facility] [id number] Never smoker [facility] [id number] Details of drug misuse behavior [facility] [id number] Benign prostatic hyperplasia with [facility] & outflow obstruction [facility] [id number] Urinalysis with Microscopic Exam, [facility] & Culture in Indicated [facility] [id number] Urethral discharge, unspecified [facility] [id number] Hypertrophy (benign) of prostate with W [facility] & urinary obstruction and other lower Anci llary Services [facility] urinary tract symptoms (LUTS) [id number] Discharge from penis [facility] [id number] CULT WOUND AEROBIC [facility] [id number] Benign prostatic hyperplasia with [facility] & lower urinary tract symptoms Ancillary S ervices [place] [id number] Alcohol use [facility] [id number] Alcohol intake [facility] [id number] Acute prostatitis [facility] [place] [facility] En[place] rubio Results test status date ordered by attending specimen abisai e WBC_urine_on_microscop unknown [id number] unknown unknown unknown y Urobilinogen_Presence_ unknown [id number] unknown unknown unknown in_Urine_by_Test_strip Specific_gravity_of_Ur unknown 15631821 unknown unknown unknown ine_by_Test_strip Nitrite_Presence_in_Ur unknown [id number] unknown unknown unknown ine_by_Test_strip Leukocyte_esterase_Pre unknown 05707256 unknown unknown unknown sence_in_Urine_by_Test_ strip Ketones_Mass_volume_in unknown 86371386 unknown unknown unknown _Urine_by_Test_strip Color_of_Urine unknown 86415754 unknown unknown unknown Bilirubin.total_Presen unknown 62093889 unknown unknown unknown ce_in_Urine_by_Test_str ip clarity_urine_point unknown 90851156 unknown unknown unk nown pH_study_of_acidity unknown [id number] unknown unknown unk nown glucose_urine unknown 91320351 unknown unknown unknown leukocyte_esterase_uri unknown [id number] unknown unknown unknown ne_by_dipstick urobilinogen_urine_sem unknown 51721308 unknown unknown unknown iquantitative_dipstick_ specific_gravity_urine unknown 28007516 unknown unknown unknown nitrite_urine_semiquan unknown [id number] unknown unknown unknown titative ketones_urine_by_test_ unknown 92737250 unknown unknown unknown strip bilirubin_urine unknown 31543468 unknown unknown unknown urine_color unknown 83217877 unknown unknown unknown Glucose_Mass_volume_in unknown 90027590 unknown unknown unknown _Urine WBC_urine_on_microscop unknown [id number] unknown unknown unknown y WBC_URINE unknown 04306991 unknown unknown unknown UROBILINOGEN_URINE unknown 79725979 unknown unknown unkn own SPECIFIC_GRAVITY_URINE unknown 50904993 unknown unknown unknown T unknown 84905286 unknown unknown unknown T unknown 32795330 unknown unknown unknown T unknown 33910121 unknown unknown unknown T unknown 93285491 unknown unknown unknown T unknown 49646553 unknown unknown unknown T unknown 34859503 unknown unknown unknown T unknown [id number] unknown unknown unknown T unknown 51055124 unknown unknown unknown T unknown 21960105 unknown unknown unknown T unknown 16742495 unknown unknown unknown T unknown 09575993 unknown unknown unknown PH_URINE unknown 88297294 unknown unknown unknown NITRITE_URINE unknown [id number] unknown unknown unknown LEUKOCYTE_ESTERASE_URI unknown 58305220 unknown unknown unknown NE KETONES_URINE_UA_ unknown [id number] unknown unknown unkno wn GLUCOSE_URINE_UA_ unknown [id number] unknown unknown unkno wn COLOR_URINE unknown [id number] unknown unknown unknown CLARITY_URINE unknown 68240836 unknown unknown unknown BILIRUBIN_URINE unknown [id number] unknown unknown unknown WBC_urine_on_microscop unknown 45200232 unknown unknown unknown y Urobilinogen_Presence_ unknown [id number] unknown unknown unknown in_Urine_by_Test_strip Specific_gravity_of_Ur unknown 04242775 unknown unknown unknown ine_by_Test_strip Nitrite_Presence_in_Ur unknown 44756675 unknown unknown unknown ine_by_Test_strip Leukocyte_esterase_Pre unknown [id number] unknown unknown unknown sence_in_Urine_by_Test_ strip Ketones_Mass_volume_in unknown 83213694 unknown unknown unknown _Urine_by_Test_strip Color_of_Urine unknown 30725763 unknown unknown unknown Bilirubin.total_Presen unknown 13788197 unknown unknown unknown ce_in_Urine_by_Test_str ip clarity_urine_point unknown 61934537 unknown unknown unk nown pH_study_of_acidity unknown 58380289 unknown unknown unk nown glucose_urine unknown 72439051 unknown unknown unknown leukocyte_esterase_uri unknown 78779402 unknown unknown unknown ne_by_dipstick urobilinogen_urine_sem unknown 31908316 unknown unknown unknown iquantitative_dipstick_ specific_gravity_urine unknown 05240375 unknown unknown unknown nitrite_urine_semiquan unknown 92679452 unknown unknown unknown titative ketones_urine_by_test_ unknown 73622957 unknown unknown unknown strip bilirubin_urine unknown 06262391 unknown unknown unknown urine_color unknown 47992387 unknown unknown unknown Glucose_Mass_volume_in unknown 43591517 unknown unknown unknown _Urine WBC_urine_on_microscop unknown 76511171 unknown unknown unknown y WBC_URINE unknown 49846798 unknown unknown unknown UROBILINOGEN_URINE unknown 14932647 unknown unknown unkn own SPECIFIC_GRAVITY_URINE unknown 17639072 unknown unknown unknown T unknown 27896480 unknown unknown unknown T unknown 46064539 unknown unknown unknown T unknown 32085068 unknown unknown unknown T unknown 40558713 unknown unknown unknown T unknown 38926533 unknown unknown unknown T unknown 77051913 unknown unknown unknown T unknown [id number] unknown unknown unknown T unknown 50031073 unknown unknown unknown T unknown 24159561 unknown unknown unknown T unknown 90230166 unknown unknown unknown T unknown 90869550 unknown unknown unknown PH_URINE unknown 03063670 unknown unknown unknown NITRITE_URINE unknown 90213287 unknown unknown unknown LEUKOCYTE_ESTERASE_URI unknown 76932100 unknown unknown unknown NE KETONES_URINE_UA_ unknown [id number] unknown unknown unkno wn GLUCOSE_URINE_UA_ unknown [id number] unknown unknown unkno wn COLOR_URINE unknown 50692338 unknown unknown unknown CLARITY_URINE unknown [id number] unknown unknown unknown BILIRUBIN_URINE unknown 30607769 unknown unknown unknown facility observation status value [...] >25 /HPF unknown UR_WBC unknown u [facility] [place] [facility] unknown 1 unknown UR_URO unknown [facility] (NORMAL) [facility] [facility] unknown >=1.030 unknown UR_SG unknown un known [facility] unknown 6.5 unknown UR_PH unknown [facility] [place] POSITIVE [facility] unknown MODERATE unknown UR_LEU_E unknown unknown Clinic STERASE [facility] [place] [facility] unknown TRACE unknown UR_KETO_ unknown u [facility] UA_ [facility] [place] [facility] unknown NEGATIVE unknown UR_GLU unknown u [facility] mg/dL [facility] [place] [facility] unknown BROWN unknown UR_COLOR unknown u [facility] [place] [facility] unknown CLOUDY unknown UR_CLARI unknown u [facility] TY [facility] [place] [facility] unknown NEGATIVE unknown UR_BILI unknown unknown Clinic [facility] [place] [facility] PH_URINE unknown 6.5 unknown U[address] unknown u [facility] Services [...] >25 /HPF unknown UR_WBC unknown u [facility] [place] [facility] unknown 1 unknown UR_URO unknown [facility] (NORMAL) [facility] unknown >=1.030 unknown UR_SG unknown un known [facility] unknown 6.5 unknown UR_PH unknown [facility] [facility] unknown POSITIVE unknown UR_NIT unknown u [facility] [place] [facility] unknown MODERATE unknown UR_LEU_E unknown unknown Clinic STERASE [facility] [place] [facility] unknown TRACE unknown UR_KETO_ unknown u [facility] UA_ [facility] [place] [facility] T unknown NEGATIVE unknown UR_GLU unknown u [facility] mg/dL [facility] [place] [facility]In T unknown BROWN unknown UR_COLOR unknown u [facility] [place] [facility] unknown CLOUDY unknown UR_CLARI unknown u [facility] TY [facility] [place] [facility] unknown NEGATIVE unknown UR_BILI unknown unknown [facility] [place] [facility] PH_URINE unknown 6.[address] unknown u [facility] Services [...] Clinic [facility] [place] Vital Signs date measurement value source [id number] [...]
--- NOTE | 2020-09-11 04:06 | ED Physician Documentation ---
PD HPI ABD PAIN - Stated complaint Stated Complaint: MALE - Chief complaint Chief Complaint: Heent - History obtained from History obtained from: Patient - History of Present Illness Timing - onset: Today Timing - details: Gradual onset Pain level now: 6 Quality: Pain Location: Suprapubic Recently seen: Emergency Dept - Additional information Additional information: patient was treated and released from emergency department earlier today. At that time, he presented with a Stinson catheter that had been in place for two weeks with chief complaint of leaking around the catheter. The catheter was removed and he was discharged. He has had no urine output for the last several hours despite increasing suprapubic pressure and urge to urinate. Review of Systems Constitutional: reports: Reviewed and negative GI: reports: Abdominal Pain (suprapubic) : reports: Unable to Void PD PAST MEDICAL HISTORY - Past Medical History Past Medical History: Yes : Benign prostate hypertrophy - Past Surgical History Past Surgical History: Yes - Allergies Allergies/Adverse Reactions: Allergies Allergy/AdvReac Type Severity Reaction Status Date / Time No Known Drug Allergies Allergy Verified 09/11/20 03:20 - Social History Does the pt smoke?: No Smoking Status: Never smoker Does the pt drink ETOH?: No Does the pt have substance abuse?: No - Immunizations Immunizations are current?: Yes PD ED PE NORMAL - Vitals Vital signs reviewed: Yes - General General: Alert and oriented X 3, Well developed/nourished, Other (appears uncomfortable) - Abdomen Abdomen: Soft, Non tender Results - Vitals Vitals: Vital Signs - 24 hr 09/11/20 09/11/20 03:17 05:00 Temperature 36.7 C Heart Rate 87 72 Respiratory 18 18 Rate Blood Pressure 160/84 H 162/83 H O2 Saturation 97 96 Oxygen O2 Source Room air PD MEDICAL DECISION MAKING - ED course Complexity details: reviewed old records (urine culture 09/07/20 grew stapha aureus resistant to pcn (patient is currently on cipro)), considered differential, d/w patient ED course: bladder scan demonstrates 590 mL in the bladder, and this was performed immediately after patient tried to void. Stinson catheters placed by the ED RN, and there was nearly 600 mL of clear yellow urine output associated with complete resolution of his symptoms. Patient strongly agrees with keeping the catheter in at this time and is comfortable with discharge home. Prior to discharge, patient reexamined due to blood noted coming from meatus. He is in no distress, denies any pain. there is a small amount of bright red blood from the Ades without active bleeding on my exam. This is most likely due to irritation of the prostate or the urethra from the reinsertion of the catheter; there is no gross hematuria in the collection bag Departure - Departure Disposition: 01 Home, Self Care Clinical Impression: Urinary retention Condition: Good Instructions: ED Catheter Care [place], SUE Retention Urinary Male Comments: Follow up with urology as scheduled Discharge Date/Time: 09/11/20 05:10
[2020-09-11 05:12] VITALS: BP 162/83
== END 2020-09-11 05:10 | disposition home or self-care (01) ==
LOC: ED 02:55
DX: N40.1 Benign prostatic hyperplasia with lower urinary tract symptoms (principal); R33.8 Other retention of urine
CPT/HCPCS: 51702; 51798; 99283

== ENCOUNTER 2020-11-15 08:57 | Outpatient (CLI) | payer MEDICARE ==
[2020-11-15 15:15] LABS: BASOPHILS # (AUTO) 0.1 10^3/uL (0.0-0.1); BASOPHILS % (AUTO) 1.5 %; EOSINOPHILS # (AUTO) 0.2 10^3/uL (0.0-0.7); HCT - HEMATOCRIT 45.8 % (42.0-52.0); HGB - HEMOGLOBIN 15.3 g/dL (14.0-18.0); LYMPHOCYTES % (AUTO) 24.3 %; MEAN CORPUSCULAR HEMOGLOBIN 31.7 pg (27.0-31.0); MEAN CORPUSCULAR HGB CONC 33.4 g/dL (32.0-36.0); MEAN CORPUSCULAR VOLUME 94.8 fL (80.0-94.0); MEAN PLATELET VOLUME 11.2 fL (7.4-11.4); MONOCYTES # (AUTO) 0.4 10^3/uL (0.0-1.0); MONOCYTES % (AUTO) 10.2 %; NEUTROPHILS # (AUTO) 2.3 10^3/uL (1.5-6.6); NEUTROPHILS % (AUTO) 57.8 %; PLT - PLATELET COUNT 170 10^3/uL (130-450); RED BLOOD COUNT 4.83 10^6/uL (4.70-6.10); RED CELL DISTRIBUTION WIDTH 12.6 % (12.0-15.0)
[2020-11-15 15:38] LABS: ALBUMIN 4.3 g/dL (3.2-5.5); ALBUMIN/GLOBULIN RATIO 1.5 (1.0-2.2); ALKALINE PHOSPHATASE 69 IU/L (42-121); ALT ALANINE AMINOTRANSFERASE 15 IU/L (10-60); AST ASPARTATE AMINOTRANSFERASE 19 IU/L (10-42); BUN - BLOOD UREA NITROGEN 18 mg/dL (6-20); CARBON DIOXIDE - CO2 28 mmol/L (21-32); CHLORIDE 103 mmol/L (101-111); CHOL/HDL RATIO 2.5 (<5.0); CHOLESTEROL 129 mg/dL; CREATININE 0.7 mg/dL (0.6-1.2); GFR - MDRD 112 (>89); GLUCOSE 123 mg/dL (70-100); HDL CHOLESTEROL 52 mg/dL; LDL CHOLESTEROL,CALCULATED 65 mg/dL; LDL/HDL RATIO 1.3 (<3.6); POTASSIUM 4.1 mmol/L (3.5-5.0); SODIUM 139 mmol/L (135-145); TOTAL PROTEIN 7.2 g/dL (6.7-8.2); TRIGLYCERIDES 61 mg/dL; VLDL CHOLESTEROL 12 mg/dL
[2020-11-15 16:07] LABS: ESTIMATED AVERAGE GLUCOSE 111 mg/dL (70-100); HEMOGLOBIN A1c% 5.5 % (4.27-6.07)
== END 2020-11-15 08:58 | disposition home or self-care (01) ==
LOC: LAB.S 08:57
PROVIDERS: ATTEND Nurse Practitioner Family
DX: Z01.812 Encounter for preprocedural laboratory examination (principal); E78.5 Hyperlipidemia, unspecified; R73.03 Prediabetes; I10 Essential (primary) hypertension
CPT/HCPCS: 36415; 80053; 80061; 83036; 83721; 84443; 85025

== ENCOUNTER 2021-05-05 18:52 | Outpatient (CLI) | payer MEDICARE | END 2021-05-05 18:53 | disposition short-term general hospital (02) | LOC: EMS 18:52 | DX: R55 Syncope and collapse (principal) | CPT/HCPCS: A0425; A0429 ==

== ENCOUNTER 2021-06-19 10:30 | Outpatient (CLI) | payer MEDICARE | END 2021-06-19 10:31 | disposition home or self-care (01) | LOC: DI 10:30 | PROVIDERS: ATTEND Internal Medicine Cardiovascular Disease | DX: R55 Syncope and collapse (principal); I77.810 Thoracic aortic ectasia; I11.9 Hypertensive heart disease without heart failure | CPT/HCPCS: 93306 ==

== ENCOUNTER 2022-11-21 08:00 | Outpatient (CLI) | payer MEDICARE | END 2022-11-21 23:59 | disposition home or self-care (01) | LOC: LAB.S 08:00 | PROVIDERS: ATTEND Physician Assistant | DX: R30.0 Dysuria (principal); R31.9 Hematuria, unspecified | CPT/HCPCS: 87086 ==

== ENCOUNTER 2023-03-28 08:00 | Outpatient (CLI) | payer MEDICARE | END 2023-03-28 23:59 | disposition home or self-care (01) | LOC: LAB.S 08:00 | PROVIDERS: ATTEND Physician Assistant Medical | DX: J02.9 Acute pharyngitis, unspecified (principal) | CPT/HCPCS: 87070 ==

== ENCOUNTER 2023-06-13 13:34 | Outpatient (CLI) | payer MEDICARE ==
[2023-06-13] MEDS ORDERED: iohexoL-300 100 ML VIAL ONE (13:38)
[2023-06-13] MEDS: iohexoL-300 100 ML VIAL IVP ONE (15:34)
[2023-06-13] MEDS: DIATRIZOATE MEGLU/DIATRIZO SOD 30 ML BOTTLE PO ONE (15:35)
--- NOTE | 2023-06-13 18:55 | CT Report ---
PROCEDURE: CT abdomen pelvis with contrast INDICATIONS: LLQ PAIN, GROIN PAIN TECHNIQUE: Helical axial CT of the abdomen and pelvis was obtained after intravenous contrast adminis tration and reformatted in multiple planes. Radiation dose reduction was achieved using automated exp osure control or adjustment of mA and/or kV according to patient size. COMPARISON: None FINDINGS: Lower thorax: The lung bases are clear. Heart size normal. No hiatal hernia. Liver: Hepatic parenchyma is diffusely decreased in attenuation without focal mass lesion. Biliary system: No calcified cholelithiasis or pericholecystic inflammation. No evidence of bile du ct dilatation. Pancreas: Unremarkable without mass or inflammation evident. Spleen: Normal in size and density. Adrenals: Normal morphology and density. Reproductive system: Hypertrophic prostate measures 7.9 x 6.5 x 1.4 cm, elevating the bladder floor. Urinary system: Normal renal size and attenuation. No renal calculi, hydronephrosis, or solid mass p resent. Urinary bladder unremarkable. Left renal peripelvic cysts. No hydronephrosis. Gastrointestinal system: The bowel appears unremarkable with no evidence of bowel obstruction or inf lammation. The stomach appears unremarkable. Appendix: No findings to suggest acute appendicitis. Peritoneal spaces: No mesenteric or retroperitoneal adenopathy. No free air. No free fluid. Vasculature: The IVC, aorta and iliac vasculature are unremarkable. Abdominal wall: Bilateral inguinal hernias containing fat without bowel involvement. Musculoskeletal: Normal bone mineralization. No acute fractures. IMPRESSION: No acute CT findings in the abdomen and pelvis. Hypertrophic prostate elevates the bladder floor. Additional chronic findings as above. Reviewed by: Fredy Conteh MD on 06/13/2023 5:54 PM [facility] Approved by: Fredy Conteh MD on 06/13/2023 5:54 PM [facility] Station ID: [id number]
== END 2023-06-13 13:35 | disposition home or self-care (01) ==
LOC: DI 13:34
PROVIDERS: ATTEND Registered Nurse
DX: K40.20 Bilateral inguinal hernia, without obstruction or gangrene, not specified as recurrent (principal); N40.0 Benign prostatic hyperplasia without lower urinary tract symptoms; R10.32 Left lower quadrant pain
CPT/HCPCS: 74177; Q9963; Q9967